=== PATIENT | male | born 1975 | race Caucasian/White ===

== ENCOUNTER 2021-07-31 10:11 | Outpatient (CLI) | payer BC, SELFPAY ==
[2021-07-31 11:33] LABS: Influenza Control Valid (Valid)
[2021-08-01 23:20] LABS: SARS-CoV-2 RNA PCR Positive
== END 2021-07-31 10:12 | disposition home or self-care (01) ==
LOC: CHSLAB 10:13
PROVIDERS: PCP Internal Medicine; Visit Provider Internal Medicine
DX: U07.1 COVID-19 (principal); B34.9 Viral infection, unspecified
CPT/HCPCS: 87804; C9803; U0003; U0005

== ENCOUNTER 2023-07-25 02:56 | Day surgery (SDC) | payer BC, SELFPAY ==
[2023-06-29 14:02] VITALS: BMI 31.2
--- NOTE | 2023-07-22 10:06 | SUR.PREOP ---
Patient called regarding upcoming procedure. left message with date and time of procedure and contact for questions.
[2023-07-25 08:38] VITALS: BP 121/83; PULSE 65; RESP 18; TEMP 36.1; O2SAT 98
[2023-07-25] MEDS: LACTATED RINGERS 1,000 ML 150 ML IV CONT (08:48)
--- NOTE | 2023-07-25 09:26 | PM.HPGS ---
History of Present Illness History of Present Illness Consent: Risks, benefits, and alternatives have been discussed and questions answered. Patient agrees to proceed with procedure. Chief complaint: neoplasm screening Narrative: Demetri Igncaio is a 48 year old male here for first screening colonoscopy Review of Systems Constitutional: Constitutional: Denies headache(s) and Denies weakness Eyes: Eyes: Denies blurry vision ENT: Reports Normal hearing present, Denies headache(s) and Denies neck pain Cardiovascular: Cardiovascular: Denies chest pain and Denies dyspnea Respiratory: Respiratory: Denies dyspnea Gastrointestinal: Gastrointestinal: Reports no additional gastrointestinal complaints Genitourinary: Genitourinary: Denies dysuria Musculoskeletal: Musculoskeletal: Denies neck pain Integumentary/Breasts: Skin/Breast: Denies dry skin Neurologic: Reports Normal hearing present, Denies headache(s) and Denies weakness Psychiatric: Psychiatric: Denies anxiety Endocrine: Endocrine: Denies change in body appearance Hematologic/Lymphatic: Hematologic/Lymphatic: Denies easy bleeding Allergic/Immunologic: Allergic/Immunologic: Denies urticaria [facility] Past Medical History Medical History (Updated 07/25/23 @ 09:27 by Bert Blanco MD) Colon cancer screening Family History Family History Mother Family history of multiple sclerosis Family history of diabetes mellitus in first degree relative Social History Social History (Updated 04/01/23 @ 10:32 by Sue Ochoa CMA) Smoking status: Former smoker Tobacco type: cigarettes Second hand tobacco smoke exposure: No Smoking end date: 07/18/06 Alcohol intake: current Drinks per week: 30 Substance use: never Substance use type: does not use Current Housing: Decline to Answer Concerned About Future Housing: Decline to Answer Difficulty Paying Gas/Electric Bills: Decline to Answer Difficulty Paying for Meds: Decline to Answer Currently Unemployed: Decline to Answer Education: Decline to Answer Difficulty w/ Childcare or Family Care: Decline to Answer Living arrangements: with family Spiritual care concerns: No Meds Home Medications and Allergies Home Medications Medication Instructions Recorded Confirmed Type diazepam 2 mg tablet 2 mg PO BID PRN Dizziness 08/21/19 06/29/23 History epinephrine 0.3 mg/0.3 mL 0.3 mg IM ONCE 08/21/19 06/29/23 History injection, auto-injector meclizine 25 mg tablet 25 mg PO BID PRN Dizziness 08/21/19 06/29/23 History vardenafil 20 mg tablet (Levitra) 20 mg PO DAILY PRN sexual activity 09/10/20 06/29/23 Rx #14 tabs losartan 50 mg tablet 50 mg PO DAILY #90 tabs 08/18/22 06/29/23 Rx levothyroxine 50 mcg tablet 50 mcg PO DAILY #90 tabs 05/10/23 06/29/23 Rx rosuvastatin 10 mg tablet (Crestor) 10 mg PO .pm #90 tabs 05/10/23 06/29/23 Rx Allergies Allergy/AdvReac Type Severity Reaction Status Date / Time Penicillins Allergy Intermediate Hives Verified 07/25/23 08:38 Vital Signs Vital Signs - 24 hr 07/25/23 08:38 Temperature 97 F L Pulse Rate 65 Respiratory Rate 18 Blood Pressure 121/83 Pulse Oximetry 98 Oxygen Delivery Room Air Exam Const: General: comfortable and no acute distress HENMT: Face/Nose/Sinus: Normal nares present Eyes: General: appearance normal, both eyes and all related structures Neck: Neck: no JVD Resp: Auscultation: clear to auscultation bilaterally Cardio: Rate: regular rate Rhythm: regular rhythm GI: Inspection: non-distended GI Palp: Yes Soft to palpation Skin: General skin exam: normal color Neuro: General: gait normal Speech: normal speech Extrem: General: normal to inspection Psych: Mental Status: mental status grossly normal Assessment and Plan Assessment and plan (1) Colon cancer screening: Code(s): Z12.11 - Encounter for screening for malignan
--- NOTE | 2023-07-25 09:29 | WPDANESEPPF ---
Anes - Initial Pre Proc Eval Procedure: Operation Date: 07/25/23 09:30 Proposed Procedures p Screening Colonoscopy - Bert Blanco MD Date/Time: 07/25/23 09:29 Surgeon: Bert Blanco MD Pre Op Diagnosis: neoplasm screening Patient Data Age: 48 Gender: M Height: 1.83 m Weight: 110.2 kg Last Vital Signs Temp 97 F L 07/25/23 08:38 Pulse 65 07/25/23 08:38 Resp 18 07/25/23 08:38 BP 121/83 07/25/23 08:38 Pulse Ox 98 07/25/23 08:38 O2 Del Method Room Air 07/25/23 08:38 Allergies Allergy/AdvReac Type Severity Reaction Status Date / Time Penicillins Allergy Intermediate Hives Verified 07/25/23 08:38 Home Medications Medication Instructions Recorded Confirmed Type diazepam 2 mg tablet 2 mg PO BID PRN Dizziness 08/21/19 06/29/23 History epinephrine 0.3 mg/0.3 mL 0.3 mg IM ONCE 08/21/19 06/29/23 History injection, auto-injector meclizine 25 mg tablet 25 mg PO BID PRN Dizziness 08/21/19 06/29/23 History vardenafil 20 mg tablet (Levitra) 20 mg PO DAILY PRN sexual activity 09/10/20 06/29/23 Rx #14 tabs losartan 50 mg tablet 50 mg PO DAILY #90 tabs 08/18/22 06/29/23 Rx levothyroxine 50 mcg tablet 50 mcg PO DAILY #90 tabs 05/10/23 06/29/23 Rx rosuvastatin 10 mg tablet (Crestor) 10 mg PO .pm #90 tabs 05/10/23 06/29/23 Rx Patient hx anesthesia problems: none Family hx anesthesia problems: none Results Review: All pre-operative results and documents have been reviewed as part of the pre-operative evaluation. [facility] Past Medical History Medical History (Updated 07/25/23 @ 09:27 by Bert Blanco MD) Colon cancer screening Family History Family History Mother Family history of multiple sclerosis Family history of diabetes mellitus in first degree relative Social History Social History (Updated 04/01/23 @ 10:32 by Sue Ochoa [facility]) Smoking status: Former smoker Tobacco type: cigarettes Second hand tobacco smoke exposure: No Smoking end date: 07/18/06 Alcohol intake: current Drinks per week: 30 Substance use: never Substance use type: does not use Current Housing: Decline to Answer Concerned About Future Housing: Decline to Answer Difficulty Paying Gas/Electric Bills: Decline to Answer Difficulty Paying for Meds: Decline to Answer Currently Unemployed: Decline to Answer Education: Decline to Answer Difficulty w/ Childcare or Family Care: Decline to Answer Living arrangements: with family Spiritual care concerns: No Anes - Eval Final PreProcedure Day of Procedure 07/25/23 09:29 Patient weight: normal Heart: regular rate and rhythm Lungs: clear to auscultation Airway: Mallampati scale class II Neurological: alert and oriented Last oral intake: >/= 8 hours ASA classification: III Emergent: no Anesthetic plan: proceed Anesthesia type and monitoring: general GIVS and standard monitoring Results Review: All pre-operative results and documents have been reviewed as part of the pre-operative evaluation. Informed Consent: The patient's anesthetic plan and its attendant risks and benefits were discussed with the patient/family/POA. Questions were solicited and answers provided to the satisfaction of the patient/family/POA.
[2023-07-25 09:54] VITALS: BP 100/66; PULSE 76; RESP 18; O2SAT 94
[2023-07-25 10:04] VITALS: BP 101/60; PULSE 70; RESP 18; O2SAT 96
== END 2023-07-25 10:20 | disposition home or self-care (01) ==
PROVIDERS: PCP Internal Medicine; Visit Provider Internal Medicine Gastroenterology
PROC: 0DJD8ZZ Inspection of Lower Intestinal Tract, Via Natural or Artificial Opening Endoscopic (ICD-10-PCS; CPT 45378; principal; 2023-07-25 09:30)
DX: Z12.11 Encounter for screening for malignant neoplasm of colon (principal); D12.3 Benign neoplasm of transverse colon; K64.8 Other hemorrhoids; Z87.891 Personal history of nicotine dependence
CPT/HCPCS: 45385; 88305; J2704; J7120